=== PATIENT | male | born 1980 | race Caucasian/White ===

== ENCOUNTER 2018-08-14 12:20 | Emergency (ER) | payer OTHER ==
[~2018-08-14] VITALS: Ht 170.2 cm; Wt 70.3 kg
[2018-08-14 14:00] VITALS: BP 104/65
== END 2018-08-14 14:00 | disposition home or self-care (01) ==
LOC: ER 12:20
DX: L53.8 Other specified erythematous conditions (principal); L98.9 Disorder of the skin and subcutaneous tissue, unspecified